=== PATIENT | male | born 1970 | race Caucasian/White ===

== ENCOUNTER 2021-02-25 03:18 | Inpatient (IN) | payer MEDICAID ==
[~2021-02-25] VITALS: Ht 185.4 cm; Wt 102.3 kg
[2021-02-25] MEDS ORDERED: NO HOME MEDS (03:39)
[2021-02-25] MEDS ORDERED: mag hydrox/Alum hydrox/simeth 30ml oral suspension PO PRN (04:20)
[2021-02-25] MEDS ORDERED: HYDROcodone/acetaminophen 5mg/325mg tablet PO PRN (04:20)
[2021-02-25] MEDS ORDERED: ondansetron 4mg rapidly disintigrating tab PO PRN (04:20)
[2021-02-25] MEDS ORDERED: acetaminophen 650mg rectal suppository RC PRN (04:20)
[2021-02-25] MEDS ORDERED: HYDROmorphone/PF 0.2 MG/ML SYRINGE IV PRN (04:20)
[2021-02-25] MEDS ORDERED: morphine 2 MG/ML inj. syringe IV PRN ×2 (04:20)
[2021-02-25] MEDS ORDERED: ondansetron/PF 4mg/2ml inj IV PRN (04:20)
[2021-02-25] MEDS ORDERED: HYDROmorphone inj. 0.5 MG/0.5 ML DISP.SYRIN IV PRN (04:20)
[2021-02-25] MEDS ORDERED: diphenhydrAMINE 25mg capsule PO PRN (04:20)
[2021-02-25] MEDS ORDERED: acetaminophen 325mg tablet PO PRN ×2 (04:20)
[2021-02-25] MEDS ORDERED: diphenhydrAMINE 50 mg/ml inj IV PRN (04:20)
[2021-02-25] MEDS ORDERED: magnesium hydroxide 30ml (MOM) UD suspension PO PRN (04:20)
[2021-02-25] MEDS ORDERED: bisacodyl 10mg suppository rectal RC PRN (04:20)
[2021-02-25] MEDS ORDERED: HYDROcodone/acetaminophen 10/325mg tab PO PRN (04:20)
[2021-02-25] MEDS: normal saline 1000ml 1,000 ML IV SCH (05:18)
[2021-02-25 05:19] LABS: PARTIAL THROMBOPLASTIN TIME 27 SECONDS (22-32)
[2021-02-25 05:30] LABS: MAGNESIUM 1.8 MG/DL (1.5-2.4); PHOSPHORUS 4.1 MG/DL (2.3-4.5)
[2021-02-25] MEDS: pantoprazole 40mg Tablet.DR PO SCH (07:30)
[2021-02-25] MEDS: docusate sod 100mg capsule PO SCH ×2 (08:00→20:00)
--- NOTE | 2021-02-25 08:27 | NUR ---
PT TO XRAY
--- NOTE | 2021-02-25 08:49 | NUR ---
returned from xray
--- NOTE | 2021-02-25 10:25 | NUR ---
PT WILL REMAIN NPO UNTIL FURTHER NOTICE PENDING POTENTIAL PROCEDURE.
--- NOTE | 2021-02-25 12:02 | NUR ---
PT SLEEPING IN BED, REMAINS ON 1.5L NC. TOLERATING WELL.
--- NOTE | 2021-02-25 14:15 | NUR ---
PT RESTING IN BED, AWAITING BED ASSIGNMENT. NO DISTRESS.
--- NOTE | 2021-02-25 16:30 | NUR ---
PROVIDED WITH BLANKET.
--- NOTE | 2021-02-25 17:15 | NUR ---
RESTING IN BED, NO DISTRESS.
[2021-02-25] MEDS ORDERED: temazepam 15mg capsule PO PRN (21:00)
[2021-02-25 22:00] VITALS: BP 122/66
[2021-02-26] VITALS (14 sets, daily range): BP systolic 82–124; BP diastolic 43–63
[2021-02-26 07:09] LABS: BASOPHILS # (AUTO) 0.1 X10'3 (0-0.2); BASOPHILS % (AUTO) 0.7 % (0-1); EOSINOPHILS # (AUTO) 0.3 X10'3 (0-0.9); EOSINOPHILS % (AUTO) 3.8 % (0-6); LYMPHOCYTES # (AUTO) 0.7 X10'3 (1.1-4.8); LYMPHOCYTES % (AUTO) 9.3 % (21-51); MEAN CORPUSCULAR HEMOGLOBIN 27.8 PG (27.0-31.0); MEAN CORPUSCULAR HGB CONC 33.1 g/dL (33.0-36.5); MEAN CORPUSCULAR VOLUME 83.9 FL (78-98); MEAN PLATELET VOLUME 8.9 FL (7.4-10.4); MONOCYTES # (AUTO) 0.9 X10'3 (0-0.9); MONOCYTES % (AUTO) 11.1 % (2-12); NEUTROPHILS # (AUTO) 5.9 X10'3 (1.8-7.7); NEUTROPHILS % (AUTO) 75.1 % (42-75); PLATELET COUNT 196 X10'3 (140-440); RED BLOOD COUNT 2.46 X10'6 (4.70-6.10); RED CELL DISTRIBUTION WIDTH 18.1 % (11.5-14.5); WHITE BLOOD COUNT 7.8 X10'3 (4.5-11.0)
[2021-02-26 07:18] LABS: HEMATOCRIT 20.7 % (42.0-52.0); HEMOGLOBIN 6.8 g/dl (14.0-17.9)
--- NOTE | 2021-02-26 07:32 | NUR ---
Paged Dr. Orta PAGER ID: [phone] MESSAGE: CRISTINA Barnes RN ext [phone]. RE: Danny Barros. Reporting critical lab H/H 6.8/20.7.
[2021-02-26] MEDS: docusate sod 100mg capsule PO SCH ×2 (07:43→20:26)
[2021-02-26] MEDS: pantoprazole 40mg Tablet.DR PO SCH (07:43)
[2021-02-26 07:57] LABS: ALANINE AMINOTRANSFERASE 28 U/L (12-78); ALBUMIN 2.1 G/DL (3.4-5.0); ALBUMIN/GLOBULIN RATIO 0.6 (1.1-1.5); ALKALINE PHOSPHATASE 53 IU/L (46-116); ANION GAP 8 (8-16); ASPARTATE AMINO TRANSFERASE 31 U/L (10-37); BILIRUBIN,TOTAL 0.9 MG/DL (0.1-1.0); BLOOD UREA NITROGEN 21 MG/DL (7-18); BUN/CREATININE RATIO 17.1 (5.4-32.0); CHLORIDE 104 MMOL/L (99-107); CREATININE 1.23 MG/DL (0.60-1.10); GLUCOSE 92 MG/DL (70-104); POTASSIUM 4.1 MMOL/L (3.5-5.1); SODIUM 136 MMOL/L (135-145); TOTAL PROTEIN 5.8 G/DL (6.4-8.2); eGFR 63 ML/MIN
--- NOTE | 2021-02-26 08:24 | NUR ---
Patient was informed that his hemoglobin and hematocrit. I discussed with him the possibility of blood transfusion, patient agreed to it verbally. He states "that's fine if I need it!"
[2021-02-26 09:11] LABS: MEAN CORPUSCULAR HEMOGLOBIN 27.6 PG (27.0-31.0); MEAN CORPUSCULAR HGB CONC 32.4 g/dL (33.0-36.5); MEAN CORPUSCULAR VOLUME 85.1 FL (78-98); MEAN PLATELET VOLUME 8.4 FL (7.4-10.4); PLATELET COUNT 241 X10'3 (140-440); RED BLOOD COUNT 2.48 X10'6 (4.70-6.10); RED CELL DISTRIBUTION WIDTH 18.1 % (11.5-14.5); WHITE BLOOD COUNT 7.9 X10'3 (4.5-11.0)
[2021-02-26 09:25] LABS: HEMATOCRIT 21.1 % (42.0-52.0); HEMOGLOBIN 6.8 g/dl (14.0-17.9)
--- NOTE | 2021-02-26 09:34 | NUR ---
Paged Dr. Orta PAGER ID: [phone] MESSAGE: CRISTINA Barnes RN ext [phone]. RE: Danny Barros. Just FYI repeat h/h still low 6.8/21.1. I will go ahead order the transfusion 1 unit PRBC. We need you to electronically sign informed consent for transfusion or by paper
--- NOTE | 2021-02-26 09:42 | NUR ---
Paged Dr. Orta PAGER ID: [phone] MESSAGE: CRISTINA Barnes RN ext [phone]. RE: Danny Barros. I am trying to put order for 1 unit PRBC for you, its asking if we want the blood irradiated. Also we need transfusion consent signed by physician
--- NOTE | 2021-02-26 11:29 | NUR ---
1 unit of PRBC started, patient has been educated about blood transfusion including signs and symptoms to watch for. patient verbalized understanding of instruction Addendum: 02/26/21 at 1513 by Molly Shah RN 1 unit PRBC tranfusion completed without reaction noted
--- NOTE | 2021-02-26 11:31 | NUR ---
Per DRU Galarza from IR, patient will need thoracentesis as soon as they are able to as they are short of staff. Addendum: 02/26/21 at 1244 by Molly Shah RN Dr. Orta was aware about this.
[2021-02-26] MEDS ORDERED: LIDOcaine 1% (10mg/ml) 2ml vial ONE (12:33)
--- NOTE | 2021-02-26 13:00 | NUR ---
Dr. Orta was aware that the discharge may not happen today as patient still getting blood transfusion, the thoracentesis may or may not get done today, and that the patient's girlfriend will not drive from [place] to the [facility] if its night time. I heard patient telling Dr. Orta that he is okay if the discharge is tomorrow.
--- NOTE | 2021-02-26 14:55 | NUR ---
Thoracentesis done, IR nurse said 1950ml fluid was taken out. BP dropped to 93/51 after the thoracentesis. will monitor
--- NOTE | 2021-02-26 15:12 | NUR ---
Paged Dr. Orta PAGER ID: [phone] MESSAGE: CRISTINA Barnes RN ext [phone]. RE: Danny Barros. Patient just had thoracentesis 1950ml of bloody drainage was taken out. Do you want us to send the specimen for culture? Also BP dropped to 87/51 HR 88 after thoracentesis. Albumin?
--- NOTE | 2021-02-26 15:22 | NUR ---
Patient was placed on Trendelenberg position. BP was rechecked 93/47
[2021-02-26 16:47] LABS: HEMATOCRIT 22.5 % (42.0-52.0); HEMOGLOBIN 7.3 g/dl (14.0-17.9); RED BLOOD COUNT 2.61 X10'6 (4.70-6.10); WHITE BLOOD COUNT 7.3 X10'3 (4.5-11.0)
[2021-02-26 16:48] LABS: MEAN CORPUSCULAR HEMOGLOBIN 27.8 PG (27.0-31.0); MEAN CORPUSCULAR HGB CONC 32.4 g/dL (33.0-36.5); MEAN CORPUSCULAR VOLUME 85.9 FL (78-98); MEAN PLATELET VOLUME 7.9 FL (7.4-10.4); PLATELET COUNT 227 X10'3 (140-440)
--- NOTE | 2021-02-26 17:18 | NUR ---
Per Dr. Orta, no need to send the pleural fluid collected from thoracentesis to the lab
--- NOTE | 2021-02-26 18:30 | NUR ---
Problems reprioritized. Patient report given, questions answered & plan of care reviewed with Priyanka LEWIS.
--- NOTE | 2021-02-26 21:59 | NUR ---
Patient in room PCU 3023. I have received report from Priyanka LEWIS and had the opportunity to ask questions and assume patient care.
[2021-02-27] VITALS (8 sets, daily range): BP systolic 94–111; BP diastolic 40–63
[2021-02-27] MEDS: normal saline 1000ml 1,000 ML IV SCH (04:20)
--- NOTE | 2021-02-27 06:26 | NUR ---
Problems reprioritized. Patient report given, questions answered & plan of care reviewed with DEBBIE Lopez.
--- NOTE | 2021-02-27 06:40 | NUR ---
Problems reprioritized. Patient report given, questions answered & plan of care reviewed with Jessica LEWIS.
[2021-02-27] MEDS: docusate sod 100mg capsule PO SCH (08:45)
[2021-02-27] MEDS: pantoprazole 40mg Tablet.DR PO SCH (08:45)
--- NOTE | 2021-02-27 10:49 | NUR ---
started blood transfusion for pt, tolerating well
--- NOTE | 2021-02-27 13:50 | NUR ---
pt wanted to dc right away after the blood transfusion. He tolerated it very well. He has an appt with his oncologist to follow up with labs and treatment on Monday, day after tomorrow. He was advised to return to ER if he had any worsening symptoms
== END 2021-02-27 14:04 | disposition home or self-care (01) | DRG 136 ==
LOC: ER 03:19 → ED HOLD 04:22 → PCU 3S 22:15
PROVIDERS: ADMIT Family Medicine; ATTEND Internal Medicine
PROC: 0W9B3ZZ Drainage of Left Pleural Cavity, Percutaneous Approach (ICD-10-PCS; principal; 2021-02-26)
PROC: 30233N1 Transfusion of Nonautologous Red Blood Cells into Peripheral Vein, Percutaneous Approach (ICD-10-PCS; 2021-02-26)
DX: C78.02 Secondary malignant neoplasm of left lung (principal); E43 Unspecified severe protein-calorie malnutrition; J95.811 Postprocedural pneumothorax; C67.9 Malignant neoplasm of bladder, unspecified; D63.8 Anemia in other chronic diseases classified elsewhere; E87.1 Hypo-osmolality and hyponatremia; J91.0 Malignant pleural effusion; C78.01 Secondary malignant neoplasm of right lung; Y84.8 Other medical procedures as the cause of abnormal reaction of the patient, or of later complication, without mention of misadventure at the time of the procedure; F17.200 Nicotine dependence, unspecified, uncomplicated; F12.90 Cannabis use, unspecified, uncomplicated; Z68.29 Body mass index [BMI] 29.0-29.9, adult; Y92.89 Other specified places as the place of occurrence of the external cause
CPT/HCPCS: 32555; 36415; 36430; 71046; 80053; 83735; 83880; 84100; 85025; 85027; 85610; 85730; 86885; 86900; 86901; 86920; 87081; 99285; G0378; J3490; J7030; P9016; Q0163